=== PATIENT | female | born 1970 | race Caucasian/White ===

== ENCOUNTER 2017-06-28 09:38 | Emergency (ER) | payer SELFPAY ==
[~2017-06-28] VITALS: Ht 160 cm; Wt 81.8 kg
[~2017-06-28 09:38] MED LIST: ADV100 IH; ADV250; ASPI-1198 PO; ESCI20TA PO; HYD50 PO; LOSA50TA37 PO; METF500T4 PO; MONT10TA21 PO
[2017-06-28 09:53] LABS: GLUCOSE,POINT OF CARE 362 MG/DL (70-110)
[2017-06-28] MEDS ORDERED: CHL25 PO (09:53)
[2017-06-28] MEDS ORDERED: CITA20TA9 PO (09:53)
[2017-06-28] MEDS ORDERED: MOME13HF2 IH (09:53)
[2017-06-28] MEDS ORDERED: INSLAN SQ (09:53)
[2017-06-28] MEDS ORDERED: KETOROLAC TROMETHAMINE 30 MG/ML VIAL IVP ONE (11:00)
[2017-06-28] MEDS ORDERED: ONDANSETRON HCL 4 MG/2 ML VIAL IVP ONE (11:00)
[2017-06-28] MEDS ORDERED: SODIUM CHLORIDE 0.9% 1,000 ML IV ONE ×2 (11:00→14:00)
[2017-06-28] MEDS ORDERED: INSULIN REGULAR, HUMAN 100 UNITS/ML IVP ONE ×2 (11:00→14:00)
[2017-06-28 12:08] LABS: BASOPHILS % (AUTO) 0.3 % (0.0-2.0); EOSINOPHILS % (AUTO) 0.5 % (1.0-6.0); HEMATOCRIT 43.8 % (36-46); HEMOGLOBIN 15.3 g/dL (12.0-16.0); LYMPHOCYTES # (AUTO) 1.6 K/uL (1.0-4.8); LYMPHOCYTES % (AUTO) 23.3 % (22.0-44.0); MEAN CORPUSCULAR HEMOGLOBIN 28.4 pg (26.0-34.0); MEAN CORPUSCULAR VOLUME 81 fL (80-100); MONOCYTES # (AUTO) 0.4 K/uL (0.1-1.0); MONOCYTES % (AUTO) 5.5 % (2.0-9.0); NEUTROPHILS # (AUTO) 4.9 K/uL (1.8-7.7); NEUTROPHILS % (AUTO) 70.4 % (40.0-70.0); PLATELET COUNT (AUTO) 325 K/uL (150-450); RED BLOOD CELL COUNT(AUTO) 5.41 MIL/uL (4.00-5.20); RED CELL DISTRIBUTION WIDTH 15.2 % (11.5-14.5)
[2017-06-28 12:24] LABS: ALANINE AMINOTRANSFERASE 72 U/L (12-78); ALBUMIN 3.6 g/dL (3.4-5.0); ALKALINE PHOSPHATASE 117 U/L (46-116); ANION GAP 8 mmol/L (8-16); ASPARTATE AMINOTRANSFERASE 53 U/L (15-37); BILIRUBIN,TOTAL 0.4 mg/dL (0.1-1.0); CALCIUM, TOTAL 9.1 mg/dL (8.8-10.5); CARBON DIOXIDE 32 mmol/L (22-29); CHLORIDE 96 mmol/L (98-107); CREATININE 0.73 mg/dL (0.60-1.30); GLOMERULAR FILTR. RATE CALC > 60 mL/min (>60); GLUCOSE,RANDOM 376 mg/dL (70-110); SODIUM SERUM 136 mmol/L (136-145); TOTAL PROTEIN, SERUM 7.8 g/dL (6.4-8.2); UREA NITROGEN, BLOOD 13 mg/dL (7-18)
[2017-06-28 12:27] LABS: POTASSIUM 2.8 mmol/L (3.5-5.1)
[2017-06-28] MEDS ORDERED: POTASSIUM CHLORIDE 20 MEQ ER TABLET PO ONE (12:30)
[2017-06-28 12:58] LABS: AMPHET/METH SCREEN,URINE NEGATIVE (NEGATIVE); BARBITURATE SCREEN, URINE NEGATIVE (NEGATIVE); BENZODIAZEPINES SCREEN,URINE NEGATIVE (NEGATIVE); CANNABINOID SCREEN,URINE NEGATIVE (NEGATIVE); COCAINE SCREEN,URINE NEGATIVE (NEGATIVE); METHADONE SCREEN, URINE NEGATIVE (NEGATIVE); OPIATE SCREEN,URINE NEGATIVE (NEGATIVE)
[2017-06-28 12:59] LABS: APPEARANCE,URINE CLEAR (CLEAR); BILIRUBIN,URINE NEGATIVE (NEGATIVE); GLUCOSE, URINE (UA) >=1000 mg/dL (NEGATIVE); KETONES,URINE NEGATIVE (NEGATIVE); LEUKOCYTE ESTERASE ,URINE NEGATIVE (NEGATIVE); NITRATE,URINE POSITIVE (NEGATIVE); OCCULT BLOOD,URINE NEGATIVE (NEGATIVE); PHENCYCLIDINE SCREEN,URINE NEGATIVE (NEGATIVE); PROTEIN,URINE NEGATIVE (NEGATIVE)
[2017-06-28 13:07] LABS: HCG,QUAL RESULT NEGATIVE (NEGATIVE)
[2017-06-28 13:12] LABS: RBC,URINE 0-2 /HPF (0-2)
[2017-06-28 13:13] LABS: BACTERIA,URINE Moderate /HPF (None Seen); SQUAMOUS EPITHELIAL CELL,UR Few /LPF (None Seen)
[2017-06-28] MEDS ORDERED: CefTRIAXone SODIUM 1 GM in DEXTROSE 5%-WATER 10 ML IV ONE (13:30)
[2017-06-28] MEDS ORDERED: LORazepam 2 MG/ML VIAL IVP ONE (13:30)
[2017-06-28 13:47] LABS: GLUCOSE,POINT OF CARE 333 MG/DL (70-110)
[2017-06-28] MEDS ORDERED: MORPHINE SULFATE 4 MG/ML SYRINGE IVP ONE (14:00)
[2017-06-28] MEDS ORDERED: METOCLOPRAMIDE HCL 5 MG/ML 2 ML VIAL IVP ONE (14:00)
[2017-06-28 15:33] LABS: GLUCOSE,POINT OF CARE 225 MG/DL (70-110)
[2017-06-28 16:00] VITALS: BP 154/96
== END 2017-06-28 16:36 | disposition home or self-care (01) ==
LOC: EMS 09:43
DX: E87.6 Hypokalemia (principal); E11.65 Type 2 diabetes mellitus with hyperglycemia; N39.0 Urinary tract infection, site not specified; R11.2 Nausea with vomiting, unspecified; K03.2 Erosion of teeth; I10 Essential (primary) hypertension; J45.909 Unspecified asthma, uncomplicated; I25.2 Old myocardial infarction; Z88.0 Allergy status to penicillin; Z91.041 Radiographic dye allergy status; Z79.82 Long term (current) use of aspirin; Z79.4 Long term (current) use of insulin; Z90.49 Acquired absence of other specified parts of digestive tract; Z98.890 Other specified postprocedural states
CPT/HCPCS: 36415; 80053; 80307; 81001; 82948; 82962; 84703; 85025; 87077; 87086; 93005; 96361; 96365; 96375; 96376; 99285; J0696; J1815; J1885; J2060; J2270; J2405; J2765; J7030; J7060

== ENCOUNTER 2017-12-02 00:59 | Emergency (ER) | payer MEDICAID ==
[~2017-12-02] VITALS: Ht 160 cm; Wt 79.5 kg
[~2017-12-02 00:59] MED LIST changes: -ADV100 IH; -ADV250; +CHL25 PO; +CITA-106 PO; -ESCI20TA PO; -HYD50 PO; +INSLAN SQ; -METF500T4 PO; +MOME13HF2 IH
[2017-12-02 01:23] LABS: GLUCOSE,POINT OF CARE 286 MG/DL (70-110)
[2017-12-02] MEDS ORDERED: GEMF600T5 PO (01:23)
[2017-12-02] MEDS ORDERED: INS7030 SQ (01:23)
[2017-12-02 01:41] LABS: BASOPHILS % (AUTO) 0.7 % (0.0-2.0); EOSINOPHILS % (AUTO) 2.5 % (1.0-6.0); HEMATOCRIT 42.9 % (36-46); HEMOGLOBIN 15.1 g/dL (12.0-16.0); LYMPHOCYTES # (AUTO) 1.7 K/uL (1.0-4.8); LYMPHOCYTES % (AUTO) 18.1 % (22.0-44.0); MEAN CORPUSCULAR HEMOGLOBIN 29.3 pg (26.0-34.0); MEAN CORPUSCULAR HGB CONC 35.3 G/dL (31.0-37.0); MEAN CORPUSCULAR VOLUME 83 fL (80-100); MONOCYTES # (AUTO) 0.3 K/uL (0.1-1.0); MONOCYTES % (AUTO) 3.3 % (2.0-9.0); NEUTROPHILS % (AUTO) 75.4 % (40.0-70.0); PLATELET COUNT (AUTO) 411 K/uL (150-450); RED BLOOD CELL COUNT(AUTO) 5.17 MIL/uL (4.00-5.20); RED CELL DISTRIBUTION WIDTH 14.5 % (11.5-14.5)
[2017-12-02 01:52] LABS: ANION GAP 7 mmol/L (8-16); CALCIUM, TOTAL 9.6 mg/dL (8.8-10.5); CARBON DIOXIDE 31 mmol/L (22-29); CHLORIDE 100 mmol/L (98-107); CREATININE 0.89 mg/dL (0.60-1.30); GLOMERULAR FILTR. RATE CALC > 60 mL/min (>60); GLUCOSE,RANDOM 305 mg/dL (70-110); POTASSIUM 3.3 mmol/L (3.5-5.1); SODIUM SERUM 138 mmol/L (136-145); UREA NITROGEN, BLOOD 17 mg/dL (7-18)
[2017-12-02 01:57] LABS: ALANINE AMINOTRANSFERASE 27 U/L (12-78); ALBUMIN 3.8 g/dL (3.4-5.0); ALKALINE PHOSPHATASE 89 U/L (46-116); ASPARTATE AMINOTRANSFERASE 17 U/L (15-37); BILIRUBIN,TOTAL 0.4 mg/dL (0.1-1.0); TOTAL PROTEIN, SERUM 8.1 g/dL (6.4-8.2)
[2017-12-02 03:16] VITALS: BP 130/88
== END 2017-12-02 04:20 | disposition home or self-care (01) ==
LOC: EMS 01:00
DX: N39.0 Urinary tract infection, site not specified (principal); J45.909 Unspecified asthma, uncomplicated; E78.00 Pure hypercholesterolemia, unspecified; E11.9 Type 2 diabetes mellitus without complications; I10 Essential (primary) hypertension; I25.2 Old myocardial infarction; Z91.041 Radiographic dye allergy status; Z88.1 Allergy status to other antibiotic agents; Z91.040 Latex allergy status; Z79.4 Long term (current) use of insulin; Z79.899 Other long term (current) drug therapy; Z90.49 Acquired absence of other specified parts of digestive tract; Z98.890 Other specified postprocedural states
CPT/HCPCS: 99284

== ENCOUNTER 2018-07-12 17:09 | Emergency (ER) | payer MEDICAID ==
[~2018-07-12] VITALS: Ht 157.5 cm; Wt 89.1 kg
[~2018-07-12 17:09] MED LIST changes: -CITA-106 PO; +GEMF600T5 PO; +INS7030 SQ; -INSLAN SQ; -LOSA50TA37 PO; +LOSA50TA64 PO
[2018-07-12 17:24] LABS: GLUCOSE,POINT OF CARE 118 MG/DL (70-110)
[2018-07-12] MEDS ORDERED: TICA60TA PO (17:27)
[2018-07-12] MEDS ORDERED: LOSA25TA41 PO (17:27)
[2018-07-12] MEDS ORDERED: METO50 PO (17:27)
[2018-07-12] MEDS ORDERED: ESCI10TA PO (17:27)
[2018-07-12] MEDS ORDERED: SODIUM CHLORIDE 0.9% 1,000 ML IV ONE (17:50)
[2018-07-12] MEDS ORDERED: DiphenhydrAMINE HCL 50 MG/ML VIAL IVP ONE (18:00)
[2018-07-12] MEDS ORDERED: FAMOTIDINE 10 MG/ML 2 ML VIAL IVP ONE (18:00)
[2018-07-12] MEDS ORDERED: MethylPREDNISolone SOD SUCC 125 MG/2 ML VIAL IVP ONE (18:00)
[2018-07-12] MEDS ORDERED: IPRATROPIUM BROMIDE 0.5 MG/2.5 ML NEB SOLUTION NEB ONE (18:00)
[2018-07-12] MEDS ORDERED: ALBUTEROL SULFATE 5 MG/ML 20 ML NEB SOLN [BULK] NEB ONE (18:00)
[2018-07-12] MEDS ORDERED: 0.9% SODIUM CHLORIDE 5 ML NEB SOLUTION NEB ONE (18:10)
[2018-07-12] MEDS ORDERED: KETOROLAC TROMETHAMINE 30 MG/ML VIAL IVP ONE (19:00)
[2018-07-12 19:42] VITALS: BP 150/104
== END 2018-07-12 20:52 | disposition home or self-care (01) ==
LOC: EMS 17:10
DX: J45.901 Unspecified asthma with (acute) exacerbation (principal); L23.9 Allergic contact dermatitis, unspecified cause; E11.9 Type 2 diabetes mellitus without complications; I10 Essential (primary) hypertension; E78.00 Pure hypercholesterolemia, unspecified; I25.2 Old myocardial infarction; Z90.49 Acquired absence of other specified parts of digestive tract; Z90.10 Acquired absence of unspecified breast and nipple; Z88.8 Allergy status to other drugs, medicaments and biological substances; Z88.1 Allergy status to other antibiotic agents; Z91.041 Radiographic dye allergy status; Z91.040 Latex allergy status; Z79.82 Long term (current) use of aspirin; Z79.4 Long term (current) use of insulin
CPT/HCPCS: 71045; 82962; 94644; 96374; 96375; 99285; J1200; J1885; J2930; J3490; J7030

== ENCOUNTER 2019-01-31 19:25 | Emergency (ER) | payer MEDICAID ==
[~2019-01-31] VITALS: Ht 160 cm; Wt 86.8 kg
[~2019-01-31 19:25] MED LIST changes: +ESCI10TA PO; +LOSA25TA41 PO; -LOSA50TA64 PO; +METO50 PO; +TICA60TA PO
[2019-01-31] MEDS ORDERED: HUMLIS7525 SQ (19:34)
[2019-01-31 19:40] LABS: GLUCOSE,POINT OF CARE 585 MG/DL (70-110)
[2019-01-31] MEDS ORDERED: TICA90TA PO (20:12)
[2019-01-31] MEDS ORDERED: SODIUM CHLORIDE 0.9% 1,000 ML IV ONE (20:15)
[2019-01-31] MEDS ORDERED: INSULIN REGULAR, HUMAN 100 UNITS/ML IVP ONE (20:15)
[2019-01-31 20:26] LABS: APPEARANCE,URINE CLEAR (CLEAR); BILIRUBIN,URINE NEGATIVE (NEGATIVE); GLUCOSE, URINE (UA) >=1000 mg/dL (NEGATIVE); KETONES,URINE NEGATIVE (NEGATIVE); LEUKOCYTE ESTERASE ,URINE NEGATIVE (NEGATIVE); NITRATE,URINE NEGATIVE (NEGATIVE); OCCULT BLOOD,URINE TRACE (NEGATIVE); PH,URINE 5.5 (5.0-8.0); PROTEIN,URINE NEGATIVE (NEGATIVE); UROBILINOGEN,URINE 0.2 mg/dL (<=1.0)
[2019-01-31 20:41] LABS: CALCIUM, TOTAL 9.1 mg/dL (8.8-10.5); CREATININE 1.13 mg/dL (0.60-1.30); MAGNESIUM 1.8 mg/dL (1.80-2.40); POTASSIUM 3.4 mmol/L (3.5-5.1)
[2019-01-31] MEDS ORDERED: POTASSIUM CHLORIDE 20 MEQ ER TABLET PO ONE (21:00)
[2019-01-31 21:06] LABS: BACTERIA,URINE Many /HPF (None Seen); SQUAMOUS EPITHELIAL CELL,UR Moderate /LPF (None Seen)
[2019-01-31 21:30] VITALS: BP 142/90
[2019-01-31 23:21] LABS: GLUCOSE,POINT OF CARE 269 MG/DL (70-110)
== END 2019-01-31 21:57 | disposition home or self-care (01) ==
LOC: EMS 19:26
DX: E11.65 Type 2 diabetes mellitus with hyperglycemia (principal); N39.0 Urinary tract infection, site not specified; E78.00 Pure hypercholesterolemia, unspecified; I10 Essential (primary) hypertension; I25.2 Old myocardial infarction; J45.909 Unspecified asthma, uncomplicated; Z90.49 Acquired absence of other specified parts of digestive tract; Z98.890 Other specified postprocedural states; Z79.4 Long term (current) use of insulin; Z88.8 Allergy status to other drugs, medicaments and biological substances; Z88.1 Allergy status to other antibiotic agents; Z91.040 Latex allergy status
CPT/HCPCS: 36415; 80048; 81001; 82948; 82962; 83735; 87077; 87086; 87186; 96361; 96374; 99283; J1815; J7030

== ENCOUNTER 2019-07-09 03:38 | Emergency (ER) | payer MEDICAID ==
[~2019-07-09] VITALS: Ht 158.8 cm; Wt 86.4 kg
[~2019-07-09 03:38] MED LIST changes: +HUMLIS7525 SQ; -INS7030 SQ; -LOSA25TA41 PO; +LOSA25TA71 PO; -TICA60TA PO; +TICA90TA PO
[2019-07-09 04:03] LABS: GLUCOSE,POINT OF CARE 277 MG/DL (70-110)
[2019-07-09 04:33] LABS: APPEARANCE,URINE CLEAR (CLEAR); BILIRUBIN,URINE NEGATIVE (NEGATIVE); GLUCOSE, URINE (UA) 500 mg/dL (NEGATIVE); KETONES,URINE NEGATIVE (NEGATIVE); LEUKOCYTE ESTERASE ,URINE NEGATIVE (NEGATIVE); NITRATE,URINE NEGATIVE (NEGATIVE); OCCULT BLOOD,URINE NEGATIVE (NEGATIVE); PROTEIN,URINE NEGATIVE (NEGATIVE); UROBILINOGEN,URINE 0.2 mg/dL (<=1.0)
[2019-07-09 04:39] LABS: BACTERIA,URINE None Seen /HPF (None Seen); RBC,URINE 0-2 /HPF (0-2); SQUAMOUS EPITHELIAL CELL,UR Few /LPF (None Seen); WBC,URINE 0-2 /HPF (0-5)
[2019-07-09 06:43] LABS: GLUCOSE,POINT OF CARE 107 MG/DL (70-110)
[2019-07-09] MEDS ORDERED: HydrOXYzine HCL 25 MG TABLET PO ONE (06:45)
[2019-07-09] MEDS ORDERED: PredniSONE 20 MG TABLET PO ONE (06:45)
[2019-07-09 08:02] VITALS: BP 169/99
== END 2019-07-09 08:23 | disposition home or self-care (01) ==
LOC: EMS 03:38
DX: L30.9 Dermatitis, unspecified (principal); R30.0 Dysuria; F41.9 Anxiety disorder, unspecified; J45.909 Unspecified asthma, uncomplicated; F32.9 Major depressive disorder, single episode, unspecified; E11.9 Type 2 diabetes mellitus without complications; E78.00 Pure hypercholesterolemia, unspecified; I10 Essential (primary) hypertension; I25.2 Old myocardial infarction; Z90.89 Acquired absence of other organs; Z79.82 Long term (current) use of aspirin; Z88.1 Allergy status to other antibiotic agents; Z88.8 Allergy status to other drugs, medicaments and biological substances; Z91.041 Radiographic dye allergy status; Z91.040 Latex allergy status
CPT/HCPCS: 81001; 81025; 82962; 84703; 99285; J7512

== ENCOUNTER 2020-04-25 06:36 | Emergency (ER) | payer MEDICAID ==
[~2020-04-25] VITALS: Ht 160 cm; Wt 90.9 kg
[~2020-04-25 06:36] MED LIST changes: +ESCI-8 PO; -ESCI10TA PO; +LOSA25TA21 PO; -LOSA25TA71 PO; +MONT-35 PO; -MONT10TA21 PO
[2020-04-25] MEDS ORDERED: ACET-3385 PO (07:09)
[2020-04-25] MEDS ORDERED: IBUPROFEN 600 MG TABLET PO ONE (08:00)
[2020-04-25] MEDS ORDERED: HYDROCODONE/ACETAMINOPHEN 5-325 MG TABLET PO ONE (08:00)
[2020-04-25 08:55] VITALS: BP 175/77
== END 2020-04-25 09:05 | disposition home or self-care (01) ==
LOC: EMS 06:39
DX: M25.531 Pain in right wrist (principal); J45.909 Unspecified asthma, uncomplicated; F41.9 Anxiety disorder, unspecified; E78.00 Pure hypercholesterolemia, unspecified; I10 Essential (primary) hypertension; Z79.899 Other long term (current) drug therapy; Z88.0 Allergy status to penicillin; Z91.040 Latex allergy status

== ENCOUNTER 2020-09-20 13:37 | Emergency (ER) | payer MEDICAID ==
[~2020-09-20] VITALS: Ht 157.5 cm; Wt 86.4 kg
[~2020-09-20 13:37] MED LIST changes: +ACET-3385 PO; -GEMF600T5 PO; +GEMF600T90 PO
[2020-09-20 13:49] VITALS: BP 158/86
[2020-09-20 14:00] LABS: GLUCOSE,POINT OF CARE 268 MG/DL (70-110)
[2020-09-20 15:17] LABS: APPEARANCE,URINE CLOUDY (CLEAR); BILIRUBIN,URINE NEGATIVE (NEGATIVE); GLUCOSE, URINE (UA) 500 mg/dL (NEGATIVE); KETONES,URINE NEGATIVE (NEGATIVE); LEUKOCYTE ESTERASE ,URINE NEGATIVE (NEGATIVE); NITRATE,URINE NEGATIVE (NEGATIVE); OCCULT BLOOD,URINE NEGATIVE (NEGATIVE); PH,URINE 7.5 (5.0-8.0); PROTEIN,URINE NEGATIVE (NEGATIVE); UROBILINOGEN,URINE 0.2 mg/dL (<=1.0)
[2020-09-20 15:29] LABS: BACTERIA,URINE Moderate /HPF (None Seen); RBC,URINE 0-2 /HPF (0-2); SQUAMOUS EPITHELIAL CELL,UR Few /LPF (None Seen)
[2020-09-20] MEDS ORDERED: HydrOXYzine HCL 25 MG TABLET PO ONE (15:30)
== END 2020-09-20 15:49 | disposition home or self-care (01) ==
LOC: EMS 13:39
DX: L30.9 Dermatitis, unspecified (principal); F32.9 Major depressive disorder, single episode, unspecified; E11.9 Type 2 diabetes mellitus without complications; E78.00 Pure hypercholesterolemia, unspecified; I25.2 Old myocardial infarction; Z91.041 Radiographic dye allergy status; Z91.040 Latex allergy status; Z88.0 Allergy status to penicillin; Z88.8 Allergy status to other drugs, medicaments and biological substances; Z79.899 Other long term (current) drug therapy
CPT/HCPCS: 81001; 81002; 82962; 84703; 87077; 87086; 99283

== ENCOUNTER 2020-10-05 13:15 | Emergency (ER) | payer MEDICAID ==
[~2020-10-05] VITALS: Ht 157.5 cm; Wt 90.9 kg
[2020-10-05 14:07] LABS: BASOPHILS % (AUTO) 1.2 % (0.0-2.0); EOSINOPHILS % (AUTO) 0.8 % (1.0-6.0); HEMATOCRIT 42.4 % (36-46); HEMOGLOBIN 13.9 g/dL (12.0-16.0); LYMPHOCYTES # (AUTO) 1.7 K/uL (1.0-4.8); LYMPHOCYTES % (AUTO) 16.2 % (22.0-44.0); MEAN CORPUSCULAR HEMOGLOBIN 26.1 pg (26.0-34.0); MEAN CORPUSCULAR HGB CONC 32.9 G/dL (31.0-37.0); MEAN CORPUSCULAR VOLUME 80 fL (80-100); MONOCYTES # (AUTO) 0.4 K/uL (0.1-1.0); MONOCYTES % (AUTO) 3.4 % (2.0-9.0); NEUTROPHILS # (AUTO) 8.2 K/uL (1.8-7.7); NEUTROPHILS % (AUTO) 78.4 % (40.0-70.0); PLATELET COUNT (AUTO) 439 K/uL (150-450); RED BLOOD CELL COUNT(AUTO) 5.33 MIL/uL (4.00-5.20); RED CELL DISTRIBUTION WIDTH 15.5 % (11.5-14.5)
[2020-10-05 14:17] LABS: ANION GAP 12 mmol/L (8-16); CARBON DIOXIDE 32 mmol/L (22-29); CHLORIDE 98 mmol/L (98-107); CREATININE 0.77 mg/dL (0.60-1.30); GLOMERULAR FILTR. RATE CALC > 60 mL/min (>60); GLUCOSE,RANDOM 300 mg/dL (70-110); SODIUM SERUM 142 mmol/L (136-145); UREA NITROGEN, BLOOD 13 mg/dL (7-18)
[2020-10-05] MEDS ORDERED: INSU100V SQ (14:38)
[2020-10-05] MEDS ORDERED: INSLAN SQ (14:38)
[2020-10-05] MEDS ORDERED: NITR0.4T52 SL (14:38)
[2020-10-05 14:43] LABS: ALANINE AMINOTRANSFERASE 31 U/L (12-78); ALBUMIN 3.4 g/dL (3.4-5.0); ALKALINE PHOSPHATASE 120 U/L (46-116); ASPARTATE AMINOTRANSFERASE 24 U/L (15-37); BILIRUBIN,TOTAL 0.3 mg/dL (0.1-1.0); CREATINE KINASE, TOTAL ONLY 89 U/L (26-192); HCG,QUANTITATIVE < 1 mIU/mL (0-6); LIPASE 113 U/L (73-393); TOTAL PROTEIN, SERUM 7.9 g/dL (6.4-8.2)
[2020-10-05] MEDS ORDERED: ACETAMINOPHEN 500 MG TABLET PO ONE (16:00)
[2020-10-05] MEDS ORDERED: DiphenhydrAMINE HCL 25 MG CAPSULE PO ONE (16:00)
[2020-10-05] MEDS ORDERED: DEXAMETHASONE SOD PHOS 4 MG/ML 5 ML VIAL IM ONE (16:00)
[2020-10-05] MEDS ORDERED: DEXAMETHASONE 4 MG TABLET PO ONE (16:00)
[2020-10-05] MEDS ORDERED: METOCLOPRAMIDE HCL 10 MG TABLET PO ONE (16:30)
[2020-10-05] MEDS ORDERED: POTASSIUM CHLORIDE 20 MEQ ER TABLET PO ONE (17:30)
[2020-10-05] MEDS ORDERED: KETOROLAC TROMETHAMINE 30 MG/ML VIAL IVP ONE (18:00)
[2020-10-05] MEDS ORDERED: SODIUM CHLORIDE 0.9% 1,000 ML IV ONE ×2 (18:00)
[2020-10-05] MEDS ORDERED: DiphenhydrAMINE HCL 50 MG/ML VIAL IVP ONE (18:15)
[2020-10-05] MEDS ORDERED: METOCLOPRAMIDE HCL 5 MG/ML 2 ML VIAL IVP ONE (18:15)
[2020-10-05 18:34] LABS: COVID AG,FIA SOURCE NASOPHARYNGEAL
[2020-10-05 18:57] VITALS: BP 133/87
[2020-10-05 19:07] LABS: GLUCOSE,POINT OF CARE 302 MG/DL (70-110)
== END 2020-10-05 20:18 | disposition home or self-care (01) ==
LOC: EMS 13:17
DX: E87.6 Hypokalemia (principal); E11.65 Type 2 diabetes mellitus with hyperglycemia; E78.00 Pure hypercholesterolemia, unspecified; I25.2 Old myocardial infarction; F41.9 Anxiety disorder, unspecified; J45.909 Unspecified asthma, uncomplicated; F32.9 Major depressive disorder, single episode, unspecified; Z20.822 Contact with and (suspected) exposure to COVID-19; Z90.89 Acquired absence of other organs; Z88.8 Allergy status to other drugs, medicaments and biological substances; Z91.041 Radiographic dye allergy status; Z91.040 Latex allergy status; Z79.4 Long term (current) use of insulin
CPT/HCPCS: 80053; 82550; 82962; 83690; 83735; 84702; 85025; 87426; 96361; 96374; 96375; 99284; J1200; J1885; J2765; J7030; J8540; U0003